=== PATIENT | female | born 1955 | race African-American/Black ===

== ENCOUNTER 2016-11-03 10:55 | Day surgery (SDC) | payer OTHER ==
[2016-10-30 18:57] VITALS: BMI 32.8
[~2016-11-03 10:55] MED LIST: LEVOFLOXACIN 500 MG PREMIX BAG IVPB ONE
[2016-11-03] MEDS ORDERED: LEVOFLOXACIN 500 MG IVPB 100 ML IVPB ONE (13:34)
[2016-11-03] MEDS ORDERED: MIDAZOLAM HCL 2 MG/2 ML SINGLE DOSE VIAL ONE ×2 (13:39→13:43)
[2016-11-03] MEDS ORDERED: LEVOFLOXACIN 500 MG PREMIX BAG IVPB ONE (13:44)
[2016-11-03] MEDS ORDERED: KETOROLAC TROMETHAMINE 30 MG/1 ML VIAL ONE (13:45)
[2016-11-03 14:37] VITALS: TEMP 97.5
--- NOTE | 2016-11-03 15:20 | OP ---
Operative Note - Note: Operative Date: 11/03/16 Pre-Operative Diagnosis: left renal stone Operation: left eswl Findings: [id number] left mid to upper pole stone Post-Operative Diagnosis: Same as Pre-op Surgeon: Kale Lai Anesthesia: General Operative Report Dictated: Yes
[2016-11-03 16:43] VITALS: BP 121/80; PULSE 74
--- NOTE | 2016-11-04 10:35 | OP ---
DATE OF OPERATION: 11/03/2016 PREOPERATIVE DIAGNOSIS: Left renal stone. POSTOPERATIVE DIAGNOSIS: Left renal stone. PROCEDURE PERFORMED: Left extracorporeal shock wave lithotripsy. SURGEON: Flavia Person MD ANESTHESIA: General. DESCRIPTION OF PROCEDURE: The patient was brought to the operating room and placed in the supine position on the operating room table. Ultrasonography and fluoroscopy were performed. A 6 x 6-mm left upper pole stone was identified. General anesthesia was then administered, as well as an intravenous dose of Levaquin. At this point, extracorporeal shock wave lithotripsy was performed; 3000 impulses at 20 joules of power were administered to the stone, with excellent fragmentation of the stone. No complications were noted. The patient tolerated the procedure very well. FLAVIA PERSON M.D. [id number]
== END 2016-11-03 16:25 | disposition home or self-care (01) ==
LOC: JASU-SURG 10:55
PROVIDERS: ATTEND Urology
PROC: 0TF4XZZ Fragmentation in Left Kidney Pelvis, External Approach (ICD-10-PCS; principal; 2016-11-03 13:39)
DX: N20.0 Calculus of kidney (principal)
CPT/HCPCS: 94760